=== PATIENT | male | born 1950 | race Caucasian/White ===

== ENCOUNTER 2017-11-20 08:30 | Inpatient (IN) | payer OTHER ==
[~2017-11-20] VITALS: Ht 170.2 cm; Wt 56.8 kg
[2017-11-20 09:23] LABS: BASOPHILS % 0.2 % (0.0-2.0); EOSINOPHILS % 0.2 % (0.0-5.0); HEMATOCRIT. 43.5 % (42.0-52.0); HEMOGLOBIN. 14.6 g/dL (14.0-18.0); LYMPHOCYTES % 23.8 % (20.0-50.0); MEAN CORPUSCULAR HEMOGLOBIN 29.3 pg (28.0-32.0); MEAN CORPUSCULAR VOLUME 87.6 fL (80.0-94.0); MONOCYTES % 9.3 % (2.0-8.0); NEUTROPHILS % 66.5 % (40.0-76.0); PLATELET 153 x1000/uL (130-400); RED BLOOD CELL COUNT 4.97 mill/uL (4.7-6.1); RED CELL DISTRIBUTION WIDTH 13.4 % (11.6-14.6)
[2017-11-20 09:30] LABS: INR 1.1; PROTHROMBIN TIME 11.1 sec (9.1-11.1)
[2017-11-20 09:32] LABS: CHLORIDE 105 mEq/L (98-107); ETHANOL BLOOD < 10 mg/dL
[2017-11-20] MEDS ORDERED: DEXTROSE 50% WATER 50ML SYRINGE IV PRN (11:45)
[2017-11-20] MEDS ORDERED: ONDANSETRON HCL 4MG/2ML INJ IV PRN (11:45)
[2017-11-20] MEDS ORDERED: BLOOD SUGAR DIAGNOSTIC STRIP TEST SCH (13:00)
[2017-11-20] MEDS ORDERED: INSULIN LISPRO 100 UNITS/ML SUBCUT SCH (13:20)
[2017-11-20] MEDS: ACETAMINOPHEN 325MG TABLET PO PRN (15:59)
[2017-11-20 17:08] VITALS: BP 124/79
[2017-11-20] MEDS ORDERED: INSU100I28 SQ (17:08)
[2017-11-20] MEDS ORDERED: METF-815 MT (17:08)
[2017-11-20] MEDS ORDERED: INSLIS SUBCUT (17:08)
[2017-11-20] MEDS ORDERED: ATEN-42 MT (17:08)
[2017-11-20] MEDS ORDERED: ATOR20TA65 MT (17:08)
[2017-11-20] MEDS: BLOOD SUGAR DIAGNOSTIC STRIP TEST SCH ×2 (18:07→21:41)
[2017-11-20] MEDS: INSULIN LISPRO 100 UNITS/ML SUBCUT SCH ×2 (18:08→21:00)
[2017-11-20] MEDS ORDERED: CLONIDINE 0.1MG TABLET PO PRN (19:00)
[2017-11-20 21:37] VITALS: BP 92/63
[2017-11-20 21:40] VITALS: BP 100/62
[2017-11-20] MEDS: INSULIN GLARGINE UD 100 UNITS/ML SYR SUBCUT SCH (21:41)
[2017-11-20] MEDS: CARBAMAZEPINE 200MG/10ML UDC PO SCH (21:51)
[2017-11-20] MEDS: VALACYCLOVIR HCL 500MG TABLET PO SCH (23:47)
[2017-11-21] MEDS: BLOOD SUGAR DIAGNOSTIC STRIP TEST SCH ×4 (07:10→21:53)
[2017-11-21] MEDS: OMEPRAZOLE 20MG CAPSULE EXTENDED RELEASE PO SCH (07:10)
[2017-11-21] MEDS: INSULIN LISPRO 100 UNITS/ML SUBCUT SCH ×4 (07:40→21:53)
[2017-11-21 08:00] VITALS: BP 105/75
[2017-11-21 08:01] LABS: BASOPHILS % 0.4 % (0.0-2.0); EOSINOPHILS % 0.7 % (0.0-5.0); HEMATOCRIT. 40.2 % (42.0-52.0); HEMOGLOBIN. 13.5 g/dL (14.0-18.0); LYMPHOCYTES % 30.6 % (20.0-50.0); MEAN CORPUSCULAR HEMOGLOBIN 29.7 pg (28.0-32.0); MEAN CORPUSCULAR VOLUME 88.1 fL (80.0-94.0); MEAN PLATELET VOLUME 11.7 fl (7.4-10.4); MONOCYTES % 8.1 % (2.0-8.0); NEUTROPHILS % 60.2 % (40.0-76.0); PLATELET 131 x1000/uL (130-400); RED BLOOD CELL COUNT 4.56 mill/uL (4.7-6.1); RED CELL DISTRIBUTION WIDTH 13.2 % (11.6-14.6)
[2017-11-21] MEDS: VALACYCLOVIR HCL 500MG TABLET PO SCH ×2 (08:57→21:00)
[2017-11-21] MEDS: PREDNISONE 20MG TABLET PO SCH (08:58)
[2017-11-21] MEDS: CARBAMAZEPINE 200MG/10ML UDC PO SCH ×3 (08:59→16:59)
[2017-11-21] MEDS ORDERED: ASPIRIN 81MG TABLET PO SCH (09:00)
[2017-11-21 09:21] LABS: CHLORIDE 104 mEq/L (98-107)
[2017-11-21] MEDS: INSULIN GLARGINE UD 100 UNITS/ML SYR SUBCUT SCH ×2 (10:49→21:53)
[2017-11-21 12:00] VITALS: BP 114/68
[2017-11-21] MEDS ORDERED: VALA500T PO (14:38)
[2017-11-21] MEDS ORDERED: OMEP20CA10 PO (14:38)
[2017-11-21] MEDS ORDERED: P20 PO (14:38)
[2017-11-21 16:02] VITALS: BP 125/72
[2017-11-21 20:00] VITALS: BP 116/70
[2017-11-22] VITALS: BP 120/81
[2017-11-22 04:00] VITALS: BP 140/73
[2017-11-22] MEDS: BLOOD SUGAR DIAGNOSTIC STRIP TEST SCH ×4 (06:31→21:00)
[2017-11-22] MEDS: OMEPRAZOLE 20MG CAPSULE EXTENDED RELEASE PO SCH (06:31)
[2017-11-22] MEDS: INSULIN LISPRO 100 UNITS/ML SUBCUT SCH ×4 (06:39→22:31)
[2017-11-22 07:14] LABS: HIV SCREEN 4G Non Reactive (Non Reactive)
[2017-11-22 08:00] VITALS: BP 107/65
[2017-11-22] MEDS: CARBAMAZEPINE 200MG/10ML UDC PO SCH ×3 (09:02→17:15)
[2017-11-22] MEDS: PREDNISONE 20MG TABLET PO SCH (09:02)
[2017-11-22] MEDS: VALACYCLOVIR HCL 500MG TABLET PO SCH ×2 (10:20→22:28)
[2017-11-22] MEDS: INSULIN GLARGINE UD 100 UNITS/ML SYR SUBCUT SCH ×2 (10:22→22:32)
[2017-11-22 12:00] VITALS: BP 116/69
[2017-11-22 16:00] VITALS: BP 112/69
[2017-11-22 20:00] VITALS: BP 131/91
[2017-11-23 04:00] VITALS: BP 117/69
[2017-11-23] MEDS: OMEPRAZOLE 20MG CAPSULE EXTENDED RELEASE PO SCH (06:19)
[2017-11-23] MEDS: INSULIN LISPRO 100 UNITS/ML SUBCUT SCH ×4 (06:43→21:25)
[2017-11-23] MEDS: BLOOD SUGAR DIAGNOSTIC STRIP TEST SCH ×4 (06:43→20:50)
[2017-11-23 07:33] LABS: BASOPHILS % 0.3 % (0.0-2.0); EOSINOPHILS % 0.5 % (0.0-5.0); HEMATOCRIT. 41.9 % (42.0-52.0); HEMOGLOBIN. 14.1 g/dL (14.0-18.0); MEAN CORPUSCULAR HEMOGLOBIN 29.3 pg (28.0-32.0); MEAN PLATELET VOLUME 10.8 fl (7.4-10.4); MONOCYTES % 5.7 % (2.0-8.0); NEUTROPHILS % 58.5 % (40.0-76.0); PLATELET 118 x1000/uL (130-400); RED BLOOD CELL COUNT 4.81 mill/uL (4.7-6.1)
[2017-11-23 07:49] LABS: CHLORIDE 107 mEq/L (98-107)
[2017-11-23 09:21] VITALS: BP 122/83
[2017-11-23] MEDS: CARBAMAZEPINE 200MG/10ML UDC PO SCH ×3 (09:47→19:17)
[2017-11-23] MEDS: PREDNISONE 20MG TABLET PO SCH (09:55)
[2017-11-23] MEDS: INSULIN GLARGINE UD 100 UNITS/ML SYR SUBCUT SCH ×2 (11:30→21:26)
[2017-11-23] MEDS: VALACYCLOVIR HCL 500MG TABLET PO SCH (14:11)
[2017-11-23 14:44] VITALS: BP 107/70
[2017-11-23 17:30] VITALS: BP 132/89
[2017-11-23] MEDS ORDERED: NEOMY SULF/BACITRAC ZN/POLY OINT 28GM TOP SCH (18:00)
[2017-11-23 20:00] VITALS: BP 133/80
[2017-11-23] MEDS: NEOMY SULF/BACITRAC ZN/POLY OINT 28GM TOP SCH (20:43)
[2017-11-24] VITALS: BP 115/78
[2017-11-24] MEDS: BLOOD SUGAR DIAGNOSTIC STRIP TEST SCH ×4 (05:46→20:33)
[2017-11-24] MEDS: OMEPRAZOLE 20MG CAPSULE EXTENDED RELEASE PO SCH (06:35)
[2017-11-24] MEDS: INSULIN LISPRO 100 UNITS/ML SUBCUT SCH ×4 (06:37→20:33)
[2017-11-24] MEDS: CARBAMAZEPINE 200MG/10ML UDC PO SCH ×3 (09:35→16:22)
[2017-11-24] MEDS: INSULIN GLARGINE UD 100 UNITS/ML SYR SUBCUT SCH ×2 (11:16→21:24)
[2017-11-24 12:30] VITALS: BP 120/71
[2017-11-24 16:00] VITALS: BP 126/77
[2017-11-24 17:16] LABS: AMMONIA 55 uMol/L (<32)
[2017-11-24 17:48] LABS: VITAMIN B12 SERUM 403 pg/mL (211-911)
[2017-11-24 20:00] VITALS: BP 105/69
[2017-11-25] VITALS: BP 119/74
[2017-11-25 04:00] VITALS: BP 104/66
[2017-11-25] MEDS: BLOOD SUGAR DIAGNOSTIC STRIP TEST SCH ×4 (06:02→21:13)
[2017-11-25] MEDS: INSULIN LISPRO 100 UNITS/ML SUBCUT SCH ×4 (06:02→21:00)
[2017-11-25] MEDS: OMEPRAZOLE 20MG CAPSULE EXTENDED RELEASE PO SCH (06:16)
[2017-11-25 06:27] LABS: BASOPHILS % 0.2 % (0.0-2.0); EOSINOPHILS % 0.5 % (0.0-5.0); HEMATOCRIT. 41.6 % (42.0-52.0); HEMOGLOBIN. 14.1 g/dL (14.0-18.0); LYMPHOCYTES % 38.2 % (20.0-50.0); MEAN CORPUSCULAR HEMOGLOBIN 29.4 pg (28.0-32.0); MEAN CORPUSCULAR VOLUME 86.6 fL (80.0-94.0); MONOCYTES % 7.8 % (2.0-8.0); NEUTROPHILS % 53.3 % (40.0-76.0); PLATELET 138 x1000/uL (130-400); RED CELL DISTRIBUTION WIDTH 13.3 % (11.6-14.6)
[2017-11-25 08:00] VITALS: BP 111/65
[2017-11-25 09:07] LABS: CHLORIDE 106 mEq/L (98-107)
[2017-11-25] MEDS: CARBAMAZEPINE 200MG/10ML UDC PO SCH ×3 (09:09→16:54)
[2017-11-25] MEDS: INSULIN GLARGINE UD 100 UNITS/ML SYR SUBCUT SCH ×2 (09:11→21:13)
[2017-11-25 12:00] VITALS: BP 118/76
[2017-11-25] MEDS: NEOMY SULF/BACITRAC ZN/POLY OINT 28GM TOP SCH (15:03)
[2017-11-25 16:00] VITALS: BP 112/68
[2017-11-25 20:00] VITALS: BP 114/77
[2017-11-26] VITALS: BP 112/66
[2017-11-26 04:00] VITALS: BP 140/80
[2017-11-26] MEDS: INSULIN LISPRO 100 UNITS/ML SUBCUT SCH ×4 (06:34→21:00)
[2017-11-26] MEDS: BLOOD SUGAR DIAGNOSTIC STRIP TEST SCH ×4 (06:34→21:00)
[2017-11-26 06:53] LABS: BASOPHILS % 0.2 % (0.0-2.0); EOSINOPHILS % 0.8 % (0.0-5.0); HEMATOCRIT. 42.4 % (42.0-52.0); HEMOGLOBIN. 14.5 g/dL (14.0-18.0); LYMPHOCYTES % 29.7 % (20.0-50.0); MEAN CORPUSCULAR HEMOGLOBIN 29.8 pg (28.0-32.0); MONOCYTES % 7.1 % (2.0-8.0); NEUTROPHILS % 62.2 % (40.0-76.0); PLATELET 121 x1000/uL (130-400); RED BLOOD CELL COUNT 4.87 mill/uL (4.7-6.1); RED CELL DISTRIBUTION WIDTH 13.5 % (11.6-14.6)
[2017-11-26 08:00] VITALS: BP 124/83
[2017-11-26 08:10] LABS: CHLORIDE 105 mEq/L (98-107)
[2017-11-26] MEDS: FAMOTIDINE 20MG TABLET PO SCH (09:15)
[2017-11-26] MEDS: CARBAMAZEPINE 200MG/10ML UDC PO SCH ×3 (09:15→16:18)
[2017-11-26] MEDS: INSULIN GLARGINE UD 100 UNITS/ML SYR SUBCUT SCH ×2 (10:00→21:28)
[2017-11-26 12:00] VITALS: BP 118/71
[2017-11-26 16:00] VITALS: BP 120/68
[2017-11-26 20:00] VITALS: BP 99/59
[2017-11-27] VITALS: BP 120/89
[2017-11-27 04:00] VITALS: BP 107/66
[2017-11-27] MEDS: BLOOD SUGAR DIAGNOSTIC STRIP TEST SCH ×4 (06:15→20:36)
[2017-11-27] MEDS: INSULIN LISPRO 100 UNITS/ML SUBCUT SCH ×4 (06:32→21:22)
[2017-11-27 08:00] VITALS: BP 108/72
[2017-11-27] MEDS: CARBAMAZEPINE 200MG/10ML UDC PO SCH ×3 (09:13→17:41)
[2017-11-27] MEDS: FAMOTIDINE 20MG TABLET PO SCH (09:13)
[2017-11-27] MEDS: INSULIN GLARGINE UD 100 UNITS/ML SYR SUBCUT SCH ×2 (09:14→21:22)
[2017-11-27 12:00] VITALS: BP 107/66
[2017-11-27 16:00] VITALS: BP 132/79
[2017-11-27] MEDS: NEOMY SULF/BACITRAC ZN/POLY OINT 28GM TOP SCH (17:42)
[2017-11-27 20:00] VITALS: BP 120/76
[2017-11-28] VITALS: BP 117/75
[2017-11-28 04:00] VITALS: BP 122/74
[2017-11-28] MEDS: BLOOD SUGAR DIAGNOSTIC STRIP TEST SCH ×4 (05:51→20:27)
[2017-11-28] MEDS: INSULIN LISPRO 100 UNITS/ML SUBCUT SCH ×4 (06:33→21:41)
[2017-11-28 08:00] VITALS: BP 114/77
[2017-11-28] MEDS: FAMOTIDINE 20MG TABLET PO SCH (09:34)
[2017-11-28] MEDS: INSULIN GLARGINE UD 100 UNITS/ML SYR SUBCUT SCH ×2 (09:38→21:41)
[2017-11-28] MEDS: CARBAMAZEPINE 200MG/10ML UDC PO SCH ×3 (10:07→17:29)
[2017-11-28 12:00] VITALS: BP 131/81
[2017-11-28 16:00] VITALS: BP 127/82
[2017-11-29] VITALS: BP 100/62
[2017-11-29 04:00] VITALS: BP 123/80
[2017-11-29] MEDS: BLOOD SUGAR DIAGNOSTIC STRIP TEST SCH ×4 (06:00→19:43)
[2017-11-29] MEDS: INSULIN LISPRO 100 UNITS/ML SUBCUT SCH ×4 (06:12→20:34)
[2017-11-29 08:00] VITALS: BP 122/80
[2017-11-29] MEDS: FAMOTIDINE 20MG TABLET PO SCH (08:48)
[2017-11-29] MEDS: CARBAMAZEPINE 200MG/10ML UDC PO SCH ×3 (08:48→17:27)
[2017-11-29] MEDS: INSULIN GLARGINE UD 100 UNITS/ML SYR SUBCUT SCH ×2 (08:51→21:19)
[2017-11-29 12:00] VITALS: BP 112/68
[2017-11-29 16:30] VITALS: BP 124/85
[2017-11-29] MEDS: NEOMY SULF/BACITRAC ZN/POLY OINT 28GM TOP SCH (17:44)
[2017-11-29 20:00] VITALS: BP 124/88
[2017-11-30] VITALS: BP 134/89
[2017-11-30 04:00] VITALS: BP 122/78
[2017-11-30] MEDS: BLOOD SUGAR DIAGNOSTIC STRIP TEST SCH ×4 (05:05→20:30)
[2017-11-30] MEDS: INSULIN LISPRO 100 UNITS/ML SUBCUT SCH ×4 (05:37→21:00)
[2017-11-30 08:00] VITALS: BP 118/82
[2017-11-30] MEDS: CARBAMAZEPINE 200MG/10ML UDC PO SCH ×3 (09:20→16:24)
[2017-11-30] MEDS: FAMOTIDINE 20MG TABLET PO SCH (09:20)
[2017-11-30] MEDS: INSULIN GLARGINE UD 100 UNITS/ML SYR SUBCUT SCH ×2 (09:23→21:01)
[2017-11-30 12:00] VITALS: BP 146/80
[2017-11-30 16:00] VITALS: BP 124/81
[2017-11-30 20:00] VITALS: BP 98/64
[2017-12-01] VITALS (7 sets, daily range): BP systolic 99–115; BP diastolic 54–72
[2017-12-01] MEDS: INSULIN LISPRO 100 UNITS/ML SUBCUT SCH ×4 (05:36→21:00)
[2017-12-01] MEDS: BLOOD SUGAR DIAGNOSTIC STRIP TEST SCH ×4 (05:36→21:24)
[2017-12-01 08:07] LABS: BASOPHILS % 0.3 % (0.0-2.0); EOSINOPHILS % 0.8 % (0.0-5.0); HEMATOCRIT. 42.6 % (42.0-52.0); HEMOGLOBIN. 14.2 g/dL (14.0-18.0); LYMPHOCYTES % 32.6 % (20.0-50.0); MEAN CORPUSCULAR HEMOGLOBIN 29.2 pg (28.0-32.0); MEAN CORPUSCULAR VOLUME 87.5 fL (80.0-94.0); MEAN PLATELET VOLUME 11.9 fl (7.4-10.4); MONOCYTES % 8.5 % (2.0-8.0); NEUTROPHILS % 57.8 % (40.0-76.0); PLATELET 122 x1000/uL (130-400); RED BLOOD CELL COUNT 4.87 mill/uL (4.7-6.1); RED CELL DISTRIBUTION WIDTH 13.3 % (11.6-14.6)
[2017-12-01 08:15] LABS: CHLORIDE 108 mEq/L (98-107)
[2017-12-01] MEDS: CARBAMAZEPINE 200MG/10ML UDC PO SCH ×3 (08:43→17:34)
[2017-12-01] MEDS: FAMOTIDINE 20MG TABLET PO SCH (08:43)
[2017-12-01] MEDS: INSULIN GLARGINE UD 100 UNITS/ML SYR SUBCUT SCH ×2 (11:05→21:27)
[2017-12-01] MEDS: NEOMY SULF/BACITRAC ZN/POLY OINT 28GM TOP SCH (17:34)
[2017-12-02] VITALS: BP 100/65
[2017-12-02 04:00] VITALS: BP 109/61
[2017-12-02] MEDS: BLOOD SUGAR DIAGNOSTIC STRIP TEST SCH ×4 (06:33→21:41)
[2017-12-02] MEDS: INSULIN LISPRO 100 UNITS/ML SUBCUT SCH ×4 (06:33→21:41)
[2017-12-02 08:00] VITALS: BP 105/71
[2017-12-02] MEDS: FAMOTIDINE 20MG TABLET PO SCH (09:31)
[2017-12-02] MEDS: CARBAMAZEPINE 200MG/10ML UDC PO SCH ×3 (09:31→17:05)
[2017-12-02] MEDS: INSULIN GLARGINE UD 100 UNITS/ML SYR SUBCUT SCH ×2 (09:36→21:44)
[2017-12-02 12:00] VITALS: BP 121/72
[2017-12-02 16:00] VITALS: BP 127/85
[2017-12-03] MEDS: BLOOD SUGAR DIAGNOSTIC STRIP TEST SCH ×4 (07:10→21:00)
[2017-12-03] MEDS: INSULIN LISPRO 100 UNITS/ML SUBCUT SCH ×4 (07:40→22:20)
[2017-12-03 08:00] VITALS: BP 122/77
[2017-12-03] MEDS: FAMOTIDINE 20MG TABLET PO SCH (09:00)
[2017-12-03] MEDS: CARBAMAZEPINE 200MG/10ML UDC PO SCH ×3 (10:14→17:58)
[2017-12-03 12:00] VITALS: BP 113/80
[2017-12-03] MEDS: INSULIN GLARGINE UD 100 UNITS/ML SYR SUBCUT SCH ×2 (13:00→22:21)
[2017-12-03 16:47] VITALS: BP 141/92
[2017-12-03] MEDS: NEOMY SULF/BACITRAC ZN/POLY OINT 28GM TOP SCH (18:00)
[2017-12-03 20:00] VITALS: BP 125/76
[2017-12-04] VITALS: BP 125/81
[2017-12-04 04:00] VITALS: BP 114/74
[2017-12-04] MEDS: BLOOD SUGAR DIAGNOSTIC STRIP TEST SCH ×4 (06:29→21:03)
[2017-12-04] MEDS: INSULIN LISPRO 100 UNITS/ML SUBCUT SCH ×4 (06:30→21:00)
[2017-12-04 08:00] VITALS: BP 109/52
[2017-12-04] MEDS: FAMOTIDINE 20MG TABLET PO SCH (09:39)
[2017-12-04] MEDS: CARBAMAZEPINE 200MG/10ML UDC PO SCH ×3 (09:39→16:58)
[2017-12-04] MEDS: INSULIN GLARGINE UD 100 UNITS/ML SYR SUBCUT SCH ×2 (09:40→21:02)
[2017-12-04 12:54] VITALS: BP 100/59
[2017-12-04 16:58] VITALS: BP 107/68
[2017-12-04 20:00] VITALS: BP 115/75
[2017-12-05] VITALS: BP 112/68
[2017-12-05 04:00] VITALS: BP 115/71
[2017-12-05] MEDS: BLOOD SUGAR DIAGNOSTIC STRIP TEST SCH ×4 (06:08→21:00)
[2017-12-05] MEDS: INSULIN LISPRO 100 UNITS/ML SUBCUT SCH ×4 (06:08→21:00)
[2017-12-05 08:00] VITALS: BP 127/86
[2017-12-05] MEDS: FAMOTIDINE 20MG TABLET PO SCH (08:57)
[2017-12-05] MEDS: CARBAMAZEPINE 200MG/10ML UDC PO SCH ×3 (08:58→17:06)
[2017-12-05 12:00] VITALS: BP 114/66
[2017-12-05] MEDS: INSULIN GLARGINE UD 100 UNITS/ML SYR SUBCUT SCH ×2 (12:57→22:00)
[2017-12-05 16:00] VITALS: BP_SYST 118; BP_SYST 94; BP_DIAS 61; BP_DIAS 75
[2017-12-05] MEDS: NEOMY SULF/BACITRAC ZN/POLY OINT 28GM TOP SCH (17:06)
[2017-12-05 20:00] VITALS: BP 118/75
[2017-12-06] VITALS: BP 105/63
[2017-12-06 04:00] VITALS: BP 104/59
[2017-12-06] MEDS: BLOOD SUGAR DIAGNOSTIC STRIP TEST SCH ×4 (07:10→20:47)
[2017-12-06] MEDS: INSULIN LISPRO 100 UNITS/ML SUBCUT SCH ×4 (07:40→21:33)
[2017-12-06] MEDS: FAMOTIDINE 20MG TABLET PO SCH (08:58)
[2017-12-06] MEDS: CARBAMAZEPINE 200MG/10ML UDC PO SCH ×3 (08:58→18:11)
[2017-12-06] MEDS: INSULIN GLARGINE UD 100 UNITS/ML SYR SUBCUT SCH ×2 (10:20→21:36)
[2017-12-06 12:00] VITALS: BP 88/49
[2017-12-06 16:00] VITALS: BP 109/67
[2017-12-06 20:00] VITALS: BP 105/56
[2017-12-07] VITALS: BP 93/56
[2017-12-07 04:00] VITALS: BP 112/72
[2017-12-07] MEDS: BLOOD SUGAR DIAGNOSTIC STRIP TEST SCH ×4 (06:16→20:43)
[2017-12-07] MEDS: INSULIN LISPRO 100 UNITS/ML SUBCUT SCH ×4 (06:21→21:00)
[2017-12-07 08:00] VITALS: BP 107/70
[2017-12-07] MEDS: CARBAMAZEPINE 200MG/10ML UDC PO SCH ×3 (10:26→17:49)
[2017-12-07] MEDS: FAMOTIDINE 20MG TABLET PO SCH (10:26)
[2017-12-07] MEDS: INSULIN GLARGINE UD 100 UNITS/ML SYR SUBCUT SCH ×2 (10:28→21:35)
[2017-12-07 12:00] VITALS: BP 106/64
[2017-12-07] MEDS: NEOMY SULF/BACITRAC ZN/POLY OINT 28GM TOP SCH (17:49)
[2017-12-07 20:00] VITALS: BP 96/54
[2017-12-08] VITALS: BP 116/68
[2017-12-08 04:00] VITALS: BP 96/52
[2017-12-08] MEDS: BLOOD SUGAR DIAGNOSTIC STRIP TEST SCH ×4 (05:57→20:35)
[2017-12-08] MEDS: INSULIN LISPRO 100 UNITS/ML SUBCUT SCH ×4 (06:08→20:38)
[2017-12-08 07:15] LABS: CHLORIDE 107 mEq/L (98-107)
[2017-12-08 07:21] LABS: BASOPHILS % 0.2 % (0.0-2.0); EOSINOPHILS % 1.4 % (0.0-5.0); HEMATOCRIT. 41.4 % (42.0-52.0); HEMOGLOBIN. 14.1 g/dL (14.0-18.0); LYMPHOCYTES % 40.7 % (20.0-50.0); MEAN CORPUSCULAR HEMOGLOBIN 29.7 pg (28.0-32.0); MEAN PLATELET VOLUME 10.9 fl (7.4-10.4); MONOCYTES % 6.9 % (2.0-8.0); NEUTROPHILS % 50.8 % (40.0-76.0); PLATELET 112 x1000/uL (130-400); RED BLOOD CELL COUNT 4.76 mill/uL (4.7-6.1); RED CELL DISTRIBUTION WIDTH 13.5 % (11.6-14.6)
[2017-12-08 08:00] VITALS: BP 117/75
[2017-12-08] MEDS: CARBAMAZEPINE 200MG/10ML UDC PO SCH ×3 (09:19→18:18)
[2017-12-08] MEDS: FAMOTIDINE 20MG TABLET PO SCH (09:19)
[2017-12-08] MEDS: INSULIN GLARGINE UD 100 UNITS/ML SYR SUBCUT SCH ×2 (09:22→20:38)
[2017-12-08 12:00] VITALS: BP 115/66
[2017-12-08 16:00] VITALS: BP 121/73
[2017-12-08 20:00] VITALS: BP 109/77
[2017-12-09] VITALS: BP 127/82
[2017-12-09 04:00] VITALS: BP 125/79
[2017-12-09] MEDS: BLOOD SUGAR DIAGNOSTIC STRIP TEST SCH ×4 (06:49→21:00)
[2017-12-09] MEDS: INSULIN LISPRO 100 UNITS/ML SUBCUT SCH ×4 (06:49→21:44)
[2017-12-09 08:00] VITALS: BP 117/62
[2017-12-09] MEDS: FAMOTIDINE 20MG TABLET PO SCH (09:31)
[2017-12-09] MEDS: CARBAMAZEPINE 200MG/10ML UDC PO SCH ×3 (09:31→16:36)
[2017-12-09] MEDS: ACETAMINOPHEN 325MG TABLET PO PRN ×2 (09:31→23:49)
[2017-12-09] MEDS: INSULIN GLARGINE UD 100 UNITS/ML SYR SUBCUT SCH ×2 (09:32→21:44)
[2017-12-09 12:00] VITALS: BP 133/79
[2017-12-09 16:00] VITALS: BP 123/85
[2017-12-09] MEDS: NEOMY SULF/BACITRAC ZN/POLY OINT 28GM TOP SCH (16:36)
[2017-12-09 20:00] VITALS: BP 118/71
[2017-12-10] VITALS: BP 125/74
[2017-12-10 04:00] VITALS: BP 116/69
[2017-12-10] MEDS: BLOOD SUGAR DIAGNOSTIC STRIP TEST SCH ×4 (05:28→20:33)
[2017-12-10] MEDS: INSULIN LISPRO 100 UNITS/ML SUBCUT SCH ×4 (06:06→20:33)
[2017-12-10 08:00] VITALS: BP 105/65
[2017-12-10] MEDS: CARBAMAZEPINE 200MG/10ML UDC PO SCH ×3 (10:30→18:30)
[2017-12-10] MEDS: FAMOTIDINE 20MG TABLET PO SCH (10:31)
[2017-12-10] MEDS: INSULIN GLARGINE UD 100 UNITS/ML SYR SUBCUT SCH ×2 (10:34→21:03)
[2017-12-10 12:00] VITALS: BP 119/62
[2017-12-10 16:00] VITALS: BP 121/75
[2017-12-11 00:53] VITALS: BP 121/69
[2017-12-11 04:00] VITALS: BP 108/63
[2017-12-11] MEDS: BLOOD SUGAR DIAGNOSTIC STRIP TEST SCH ×4 (05:50→20:49)
[2017-12-11] MEDS: INSULIN LISPRO 100 UNITS/ML SUBCUT SCH ×4 (05:50→21:03)
[2017-12-11 08:00] VITALS: BP 99/53
[2017-12-11] MEDS: FAMOTIDINE 20MG TABLET PO SCH (09:51)
[2017-12-11] MEDS: CARBAMAZEPINE 200MG/10ML UDC PO SCH ×3 (09:51→17:28)
[2017-12-11] MEDS: INSULIN GLARGINE UD 100 UNITS/ML SYR SUBCUT SCH ×2 (09:56→21:04)
[2017-12-11 12:00] VITALS: BP 110/67
[2017-12-11] MEDS: NEOMY SULF/BACITRAC ZN/POLY OINT 28GM TOP SCH (17:29)
[2017-12-11 17:34] VITALS: BP 116/68
[2017-12-11] MEDS ORDERED: CARBAMAZEPINE 100MG TABLET CHEW PO SCH (18:23)
[2017-12-12] VITALS: BP 112/70
[2017-12-12 04:00] VITALS: BP 108/63
[2017-12-12] MEDS: BLOOD SUGAR DIAGNOSTIC STRIP TEST SCH ×4 (05:51→20:40)
[2017-12-12] MEDS: INSULIN LISPRO 100 UNITS/ML SUBCUT SCH ×4 (06:33→20:57)
[2017-12-12 08:00] VITALS: BP 116/73
[2017-12-12] MEDS: CARBAMAZEPINE 200MG/10ML UDC PO SCH ×3 (08:54→18:12)
[2017-12-12] MEDS: FAMOTIDINE 20MG TABLET PO SCH (08:54)
[2017-12-12] MEDS: INSULIN GLARGINE UD 100 UNITS/ML SYR SUBCUT SCH ×2 (08:57→21:02)
[2017-12-12 12:00] VITALS: BP 112/71
[2017-12-12 16:00] VITALS: BP 109/77
[2017-12-12 20:00] VITALS: BP 115/74
[2017-12-12] MEDS: RISPERIDONE 1MG TABLET PO SCH (20:57)
[2017-12-13] VITALS: BP 102/53
[2017-12-13] MEDS: ACETAMINOPHEN 325MG TABLET PO PRN ×2 (02:13→09:34)
[2017-12-13 04:00] VITALS: BP 126/75
[2017-12-13] MEDS: BLOOD SUGAR DIAGNOSTIC STRIP TEST SCH ×4 (06:09→20:36)
[2017-12-13] MEDS: INSULIN LISPRO 100 UNITS/ML SUBCUT SCH ×4 (06:46→21:57)
[2017-12-13 08:00] VITALS: BP 144/94
[2017-12-13] MEDS: RISPERIDONE 1MG TABLET PO SCH ×2 (09:29→21:55)
[2017-12-13] MEDS: FAMOTIDINE 20MG TABLET PO SCH (09:29)
[2017-12-13] MEDS: CARBAMAZEPINE 200MG/10ML UDC PO SCH ×3 (09:29→17:14)
[2017-12-13] MEDS: INSULIN GLARGINE UD 100 UNITS/ML SYR SUBCUT SCH ×2 (10:14→21:58)
[2017-12-13 12:00] VITALS: BP 98/56
[2017-12-13 16:00] VITALS: BP 125/79
[2017-12-13] MEDS: NEOMY SULF/BACITRAC ZN/POLY OINT 28GM TOP SCH (17:14)
[2017-12-13 20:00] VITALS: BP 107/65
[2017-12-14] VITALS: BP 110/57
[2017-12-14 04:30] VITALS: BP 102/51
[2017-12-14] MEDS: BLOOD SUGAR DIAGNOSTIC STRIP TEST SCH ×4 (05:40→20:11)
[2017-12-14] MEDS: INSULIN LISPRO 100 UNITS/ML SUBCUT SCH ×4 (06:09→22:39)
[2017-12-14 07:54] VITALS: BP 127/68
[2017-12-14] MEDS: FAMOTIDINE 20MG TABLET PO SCH (09:22)
[2017-12-14] MEDS: CARBAMAZEPINE 200MG/10ML UDC PO SCH ×3 (09:22→16:44)
[2017-12-14] MEDS: RISPERIDONE 1MG TABLET PO SCH ×2 (09:23→22:41)
[2017-12-14] MEDS: INSULIN GLARGINE UD 100 UNITS/ML SYR SUBCUT SCH ×2 (09:24→22:41)
[2017-12-14 12:00] VITALS: BP 91/51
[2017-12-14 16:19] VITALS: BP 94/53
[2017-12-14 20:00] VITALS: BP 109/61
[2017-12-15] VITALS: BP 112/79
[2017-12-15 04:00] VITALS: BP 129/70
[2017-12-15] MEDS: BLOOD SUGAR DIAGNOSTIC STRIP TEST SCH ×4 (05:55→21:36)
[2017-12-15] MEDS: INSULIN LISPRO 100 UNITS/ML SUBCUT SCH ×4 (05:56→21:51)
[2017-12-15 08:00] VITALS: BP 99/53
[2017-12-15] MEDS: RISPERIDONE 1MG TABLET PO SCH ×2 (09:23→21:48)
[2017-12-15] MEDS: FAMOTIDINE 20MG TABLET PO SCH (09:23)
[2017-12-15] MEDS: CARBAMAZEPINE 200MG/10ML UDC PO SCH ×3 (09:23→17:12)
[2017-12-15] MEDS: INSULIN GLARGINE UD 100 UNITS/ML SYR SUBCUT SCH ×2 (09:24→21:52)
[2017-12-15 12:00] VITALS: BP_SYST 116; BP_SYST 119; BP_DIAS 72; BP_DIAS 73
[2017-12-15 16:00] VITALS: BP_SYST 118; BP_DIAS 68; BP_DIAS 73
[2017-12-15] MEDS: NEOMY SULF/BACITRAC ZN/POLY OINT 28GM TOP SCH (17:12)
[2017-12-15 20:00] VITALS: BP 104/69
[2017-12-16] VITALS: BP 100/54
[2017-12-16] MEDS: ACETAMINOPHEN 325MG TABLET PO PRN ×3 (00:18→22:42)
[2017-12-16 04:00] VITALS: BP 119/79
[2017-12-16] MEDS: BLOOD SUGAR DIAGNOSTIC STRIP TEST SCH ×4 (06:17→20:16)
[2017-12-16] MEDS: INSULIN LISPRO 100 UNITS/ML SUBCUT SCH ×4 (06:24→20:59)
[2017-12-16 08:18] VITALS: BP 106/68
[2017-12-16] MEDS: RISPERIDONE 1MG TABLET PO SCH ×2 (08:53→20:49)
[2017-12-16] MEDS: CARBAMAZEPINE 200MG/10ML UDC PO SCH ×3 (08:53→17:34)
[2017-12-16] MEDS: FAMOTIDINE 20MG TABLET PO SCH (08:53)
[2017-12-16] MEDS: INSULIN GLARGINE UD 100 UNITS/ML SYR SUBCUT SCH ×2 (09:24→21:00)
[2017-12-16 12:00] VITALS: BP 116/76
[2017-12-16 16:00] VITALS: BP 94/46
[2017-12-16 20:00] VITALS: BP 126/77
[2017-12-17] VITALS: BP 103/67
[2017-12-17] MEDS: INSULIN LISPRO 100 UNITS/ML SUBCUT SCH ×2 (06:49→13:10)
[2017-12-17] MEDS: BLOOD SUGAR DIAGNOSTIC STRIP TEST SCH ×2 (06:49→12:26)
[2017-12-17 08:00] VITALS: BP 106/65
[2017-12-17 08:42] LABS: BASOPHILS % 0.3 % (0.0-2.0); EOSINOPHILS % 1.3 % (0.0-5.0); HEMATOCRIT. 40.2 % (42.0-52.0); HEMOGLOBIN. 13.7 g/dL (14.0-18.0); LYMPHOCYTES % 30.9 % (20.0-50.0); MEAN CORPUSCULAR HEMOGLOBIN 29.7 pg (28.0-32.0); MEAN CORPUSCULAR VOLUME 87.3 fL (80.0-94.0); MONOCYTES % 8.9 % (2.0-8.0); NEUTROPHILS % 58.6 % (40.0-76.0); PLATELET 105 x1000/uL (130-400); RED CELL DISTRIBUTION WIDTH 13.3 % (11.6-14.6)
[2017-12-17 09:23] LABS: CHLORIDE 107 mEq/L (98-107)
[2017-12-17] MEDS: FAMOTIDINE 20MG TABLET PO SCH (10:32)
[2017-12-17] MEDS: RISPERIDONE 1MG TABLET PO SCH (10:32)
[2017-12-17] MEDS: CARBAMAZEPINE 200MG/10ML UDC PO SCH ×2 (10:33→13:11)
[2017-12-17] MEDS: INSULIN GLARGINE UD 100 UNITS/ML SYR SUBCUT SCH (10:35)
[2017-12-17 12:22] VITALS: BP 109/70
[2017-12-17 16:37] VITALS: BP_SYST 110; BP_DIAS 63; BP_DIAS 70
== END 2017-12-17 19:03 | DRG 74 ==
LOC: ER 08:48 → EDBEDREQSVC 13:01 → 8WST 13:01 → EDBEDREQTM 13:01 → EDBEDREQ 13:01 → CANRESERV 15:28 → ENRESERV 15:28 → 8WST 12-05 08:31
PROVIDERS: ADMIT Internal Medicine; ATTEND Internal Medicine
DX: G50.0 Trigeminal neuralgia (principal); M20.40 Other hammer toe(s) (acquired), unspecified foot; G51.0 Bell's palsy; F25.9 Schizoaffective disorder, unspecified; M21.6X2 Other acquired deformities of left foot; M21.6X1 Other acquired deformities of right foot; S90.812A Abrasion, left foot, initial encounter; F10.10 Alcohol abuse, uncomplicated; X58.XXXA Exposure to other specified factors, initial encounter; S91.301A Unspecified open wound, right foot, initial encounter; S91.302A Unspecified open wound, left foot, initial encounter; E11.9 Type 2 diabetes mellitus without complications; E78.5 Hyperlipidemia, unspecified; F41.9 Anxiety disorder, unspecified; I10 Essential (primary) hypertension; Z59.0 Homelessness; Z79.4 Long term (current) use of insulin; Z79.84 Long term (current) use of oral hypoglycemic drugs; Z79.899 Other long term (current) drug therapy; Y93.89 Activity, other specified; Y92.89 Other specified places as the place of occurrence of the external cause; Y99.8 Other external cause status; E11.65 Type 2 diabetes mellitus with hyperglycemia
CPT/HCPCS: 36415; 70551; 71045; 80048; 80061; 82140; 82607; 82962; 83036; 83880; 84443; 84484; 87389; 87493; 92610; 97162; 97164; 97166; 97530; 97535; 99285; G0482; J1815; J7512; A4315